=== PATIENT | female | born 1945 | race Caucasian/White ===

== ENCOUNTER 2016-08-08 17:01 | Emergency (ER) | payer MEDICARE, BC ==
[~2016-08-08] VITALS: Ht 165.1 cm; Wt 59.0 kg
[2016-08-08] MEDS ORDERED: Acetaminophen 500mg (ES) tab ORAL ONE (17:45)
[2016-08-08 17:54] VITALS: BP 135/79
--- NOTE | 2016-08-08 18:09 | Emergency Room Report ---
History of Present Illness General Chief Complaint: Laceration Source: Patient Present Illness HPI 71 YO Pt. presents to the ED accompanied by daughter c/o Pain and swelling of the left ankle, TTP to the left wrist, laceration to the left eyebrow, and pain , and bruising to the base of the right thumb x1 day s/p mechanical slip and fall outside while picking fruit. denies LOC, Pt. can recall the entire event. PT. states she as been taking advil the last two days, denies being prescribed blood thinning medications. Pt. states that she is her for evaluation and imaging, however wishes to have her plastic surgeon repair her facial laceration. PT. does not know when her last tetanus vaccination was. Pt. denies neck or back pain. Pt. denies weakness, or hx of frequent falls, denies changes in medications, recent illness, or hx of dysrhythmias. Pt. reports pain as 7/10 in severity to the left ankle, and the right thumb, and 6/10 in severity to the left wrist. Denies numbness tingling or loss of sensation or gross motor movements of the extremities, incontinence of bowel or bladder. Denies CP, Palpitations, LOC, AMS, dizziness, Changes in Vision, Sensation, paresthesias, or a sudden severe headache. Allergies: Coded Allergies: LATEX (Verified Allergy, Unknown, 08/08/16) Patient History Past Medical History: see triage record Past Surgical History: none Pertinent Family History: none Now: No Immunizations: UTD Reviewed Nursing Documentation: PMH: Agreed, PSxH: Agreed Nursing Documentation-PMH Past Medical History: No Stated History Review of Systems All Other Systems: negative except mentioned in HPI Physical Exam Vital Signs Date Time Temp Pulse Resp B/P Pulse Ox O2 Delivery O2 Flow Rate FiO2 08/08/16 17:05 97.7 86 15 137/81 97 Room Air Sp02 EP Interpretation: reviewed, normal General Appearance: no apparent distress, alert, GCS 15, non-toxic Head: normocephalic, other - 1.2 cm laceration to the area about the left eyebrow, stellate in appearance, bleeding is controled at this time, no evidence of FB. No Bruises or evidence of secondary infeciton. Eyes: bilateral eye PERRL, bilateral eye normal inspection ENT: hearing grossly normal, normal pharynx, no angioedema, normal voice Neck: full range of motion, no bony tend, supple/symm/no masses Respiratory: chest non-tender, lungs clear, normal breath sounds, speaking full sentences Cardiovascular #1: regular rate, rhythm, no edema Rectal: deferred Musculoskeletal: back normal, gait/station normal, normal range of motion, no calf tenderness, tender - TTP to the left lateral ankle, the base of the right thumb, and the dorsum of the left wrist, other than mild swelling noted to the lateral left ankle, no obvious deformities, minimal increased laxity upon stressing of the right thumb with exacerbation of pain suspicious for ligamental sprain. Neurologic: alert, oriented x3, responsive, motor strength/tone normal, sensory intact, speech normal Psychiatric: judgement/insight normal, memory normal, mood/affect normal, no suicidal/homicidal ideation Skin: normal color, no rash, warm/dry, well hydrated, other - v1.2 cm laceration to the area about the left eyebrow, stellate in appearance, bleeding is controled at this time, no evidence of FB. No Bruises or evidence of secondary infeciton. , hematoma - left lateral ankle, and the base of the right thumb Lymphatic: no adenopathy Procedures Splinting Splinting #1: Consent: Verbal Location: right thumb Pre-Made Type: Splint: thumb spica Pre-Proc Neuro Vasc Exam: normal Post-Proc Neuro Vasc Exam: normal Patient Tolerated: Well Complications: None Splinting #2: Consent: Verbal Location: left ankle Splint: ankle stirrup Pre-Proc Neuro Vasc Exam: normal Post-Proc Neuro Vasc Exam: normal Patient Tolerated: Well Complications: None Medical Decision Making PA Attestation Dr. Osuna is my supervising Physician whom patient management has been discussed with. Diagnostic Impression: Primary Impression: Facial laceration Qualified Codes: S01.81XA - Laceration without foreign body of other part of head, initial encounter Additional Impressions: Head injury, acute, without loss of consciousness Qualified Codes: S09.90XA - Unspecified injury of head, initial encounter Contusion of left ankle Qualified Codes: S90.02XA - Contusion of left ankle, initial encounter Contusion of left wrist, initial encounter Contusion of right wrist, initial encounter ER Course Pt. presents to the ED c/o Pain and swelling of the left ankle, TTP to the left wrist, laceration to the left eyebrow, and pain, and bruising to the base of the right thumb x1 day s/p mechanical slip and fall outside while picking fruit. denies LOC, states she as been taking advil the last two days, denies being prescribed blood thinning medications. Ddx considered but are not limited to Fracture, dislocation, contusion, Sprain/ Strain/Spasm, Epidural abscess, Neoplastic mets. Vital signs: are WNL, pt. is afebrile H&PE are most consistent with Left eyebrow facial laceration, sprain/contusion of the right thumb and left wrist, possible left ankle sprain. ORDERS: - X-ray Left wrist 2 views - negative for fx, Dislocation, or significant soft tissue injury, per preliminary read in ED by Dr. Osuna - X-ray Left ankle 3 views - Positive for lateral soft tissue swelling, negative for fx or Dislocation, per preliminary read in ED by Dr. Osuna - X-ray Right hand 3 views - negative for fx, Dislocation, or significant soft tissue injury, moderate degenerative changes and possible subluxation of the thumb, per preliminary read in ED by Dr. Osuna -CT head No contrast: No evidence of acute fracture, hemorrhage, or intracranial process Per: official radiology report. ED INTERVENTIONS: - 500mg Tylenol PO -PT. declines Tetanus vaccination -Pt declines wound closure, Spoke with pt's Plastic surgeon Dr. Stewart who is expecting pt. to arrive at his office upon medical clearance from ED. -Bacitracin and wet to dry dressing is applied by RN to the left eyebrow laceration per Plastic Surgeon verbal request. -Thumb Spica splint applied to the right hand by ED Research Professor, pt. remains NVI both before and after application of the splint. - Stirrup ankle splint is applied to the left ankle by the ED Research Professor. The pt. remained NVI both before and after application. - PT. is provided with crutches. DISCHARGE: At this time pt. is stable for d/c to Self transport to Plastic Surgeons office for wound closure. Will provide printed patient care instructions, and any necessary prescriptions. Care plan and follow up instructions have been discussed with the patient prior to discharge. Last Vital Signs Date Time Temp Pulse Resp B/P Pulse Ox O2 Delivery O2 Flow Rate FiO2 08/08/16 17:54 97.7 82 16 135/79 99 Room Air Disposition: HOME, SELF-CARE Condition: Stable Scripts Acetaminophen With Codeine (T#3) (TYLENOL #3 TAB*) Y Tab 1 TAB ORAL Q6H Y for For Pain, #10 TAB Prov: Elsa Stephens 08/08/16 Cephalexin* (KEFLEX*) 500 Mg Capsule 500 MG ORAL EVERY 12 HOURS for 7 Days, #14 CAP 0 Refills Prov: Elsa Stephens 08/08/16 Patient Instructions: Contusion, Facial Laceration, [id number], Head Injury, Adult, [id number] Additional Instructions: Take medications as directed. Follow up with your Plastic Surgeon immediately upon Discharge from the ED. Follow up with your PCP in 3-5 days. Return sooner to ED if new symptoms occur, or current symptoms become worse. Elsa Stephens Aug 08, 2016 18:09
[2016-08-08] MEDS ORDERED: CEPHALEXIN500 MG ORAL (18:23)
[2016-08-08] MEDS ORDERED: ACETAMINOPHEN-1 EAC1 ORAL (18:23)
[2016-08-08 19:09] VITALS: BP 135/79
--- NOTE | 2016-08-09 10:59 | Diagnostic Imaging Report ---
\H\CT Brain without Intravenous Contrast INDICATION: \N\Status post fall.\H\ COMPARISON: \N\None\H\ TECHNIQUE: Serial axial images were obtained from the the skull base through the vertex without intravenous contrast. Coronal reformats were obtained. Dose Estimate: Total DLP \N\1407\H\ mGycm CTDIvol \N\70\H\ mGy FINDINGS: The topete white matter differentiation appears normal. There is no evidence of acute intracranial hemorrhage or territorial infarct. The cortical sulci, ventricles and extra-axial CSF spaces are normal in size for patient's age. There is no space occupying lesion, mass effect or midline shift. Few nonspecific periventricular and subcortical white matter hypodensities may reflect mild chronic microangiopathy. Trace air-fluid level noted in the right sphenoid sinus. The remaining visualized paranasal sinuses and mastoid air cells are clear. The osseous structures are unremarkable. Small air pockets noted in the left supraorbital soft tissues compatible with soft tissue laceration. Probable 1 cm sebaceous cyst noted in the right parietal scalp at the vertex. \N\\H\IMPRESSION: 1. Left supraorbital soft tissue laceration. No acute intracranial hemorrhage, midline shift or mass effect. 2. Few nonspecific periventricular and subcortical white matter hypodensities may reflect changes of chronic microangiopathy. \N\
--- NOTE | 2016-08-26 09:27 | Diagnostic Imaging Report ---
History: Pain status post fall. Technique: Frontal, lateral, and oblique views of the right hand are provided. Comparison: No prior study is available for comparison. Findings: Overall bony mineralization is reduced. There is no evidence of acute fracture or dislocation. Moderate osteoarthritis of the first carpometacarpal joint noted. The soft tissues appear grossly normal. Impression: No evidence of acute fracture or dislocation. Moderate osteoarthritis of the first carpometacarpal joint.
--- NOTE | 2016-08-26 09:27 | Diagnostic Imaging Report ---
History: Pain status post fall. Technique: Frontal, lateral, and oblique views of the left wrist are provided. Comparison: No prior study is available for comparison. Findings: Overall bony mineralization is reduced. There is no definite evidence of acute fracture or dislocation. Severe joint space loss and subchondral sclerotic changes and cyst formation are noted in the first carpometacarpal bone compatible with advanced osteoarthritis. Impression: No evidence of acute fracture or dislocation. Advanced osteoarthritis involving the first carpometacarpal joint.
--- NOTE | 2016-08-26 09:27 | Diagnostic Imaging Report ---
History: Pain status post fall. Technique: Frontal, lateral, and oblique views of the left ankle are provided. Comparison: No prior study is available for comparison. Findings: Overall bony mineralization is within normal limits. There is no evidence of acute fracture or dislocation. No significant erosive or arthritic change is noted. The soft tissues appear grossly normal. No significant joint effusion is noted. Impression: No evidence of acute fracture or dislocation.
== END 2016-08-08 19:11 | disposition home or self-care (01) ==
LOC: EMR 18:10
DX: S01.112A Laceration without foreign body of left eyelid and periocular area, initial encounter (principal); S09.8XXA Other specified injuries of head, initial encounter; S60.011A Contusion of right thumb without damage to nail, initial encounter; S90.02XA Contusion of left ankle, initial encounter; W01.0XXA Fall on same level from slipping, tripping and stumbling without subsequent striking against object, initial encounter; Y92.9 Unspecified place or not applicable; Z91.040 Latex allergy status
CPT/HCPCS: 29280; 70450; 99284